=== PATIENT | female | born 1980 | race Caucasian/White ===

== ENCOUNTER 2017-05-25 01:22 | Emergency (ER) ==
[2017-05-25 01:35] VITALS: BP 125/79; TEMP 97.8; BMI 24.5
[2017-05-25] MEDS ORDERED: SODIUM CHLORIDE 1,000 ML IV STA (01:39)
[2017-05-25 02:20] LABS: BASOPHILS # (AUTO) 0.1 K/uL (0-0.2); BASOPHILS % (AUTO) 0.9 % (0.0-3.0); EOSINOPHILS # (AUTO) 0.3 K/ul (0.0-0.7); EOSINOPHILS % (AUTO) 4.5 % (0.0-7.0); HEMOGLOBIN 12.1 g/dl (12.0-16.0); IMMATURE GRANULOCYTE % (AUTO) 0.1 % (0.0-5.0); LYMPHOCYTES # (AUTO) 2.7 K/uL (0.60-3.4); LYMPHOCYTES % (AUTO) 36.4 (10.0-50.0); MEAN CORPUSCULAR HEMOGLOBIN 30.6 pg (27.0-31.0); MEAN CORPUSCULAR HGB CONC 32.7 (31.8-35.4); MEAN CORPUSCULAR VOLUME 93.7 fl (81.0-99.0); MONOCYTES # (AUTO) 0.6 K/uL (0.4-2.0); MONOCYTES % (AUTO) 7.4 (0-10); NEUTROPHILS # (AUTO) 3.8 K/ul (2.0-6.9); NEUTROPHILS % (AUTO) 50.7; PLATELET COUNT 195 10^3/uL (140-440); RED BLOOD COUNT 3.95 10^6/ul (4.20-5.40)
[2017-05-25 02:31] LABS: SERUM PREGNANCY INTERNAL QC INTERNAL QC VALID
[2017-05-25 02:41] LABS: BILIRUBIN,URINE 3+ (NEGATIVE); KETONES,URINE 1+ (NEGATIVE); LEUKOCYTE ESTERASE ,URINE 3+ (NEGATIVE); NITRITE,URINE Positive (NEGATIVE); PH,URINE 8.5 (5-9); PROTEIN,URINE 3+ (NEGATIVE); URINE, BLOOD 3+ (NEGATIVE)
[2017-05-25 02:43] LABS: ADD URINE MICROSCOPIC YES
[2017-05-25 02:47] LABS: ERYTHROCYTE SEDIMENTATION RATE 4 mm/hr (0-20); ESR INTERNAL QC INTERNAL QC VALID
[2017-05-25 03:09] LABS: ALBUMIN 3.7 g/dL (3.4-5.0); ALBUMIN/GLOBULIN RATIO 1.42; ANION GAP 10.8; BILIRUBIN,TOTAL 0.14 mg/dL (0.00-1.20); BUN/CREATININE RATIO 5.55; CALCIUM 8.9 mg/dL (8.2-10.2); CREATININE 0.72 mg/dL (0.60-1.30); POTASSIUM 3.8 mmol/L (3.5-5.10); TOTAL PROTEIN 6.3 g/dL (6.4-8.2)
--- NOTE | 2017-05-25 04:00 | CT ---
Exam: CT of the abdomen and pelvis without and with contrast History: Pelvic pain and swelling Technique: [address] of the abdomen and pelvis without and with intravascular contrast FINDINGS: The lung bases are clear. No significant liver abnormality. The adrenals, pancreas and sple en are unremarkable. The stomach and hiatus are unremarkable.The gallbladder appears normal. Kidneys and proximal collecting system are unremarkable. The appendix is not seen. Normal caliber bowel loops . Moderate tierney colonic stool retention. No inflammation of the mesentery or retroperitoneum. Pelvic genitourinary structures appear normal. Pelvic bowel loops are unremarkable. No inflammatory c hange in the pelvic fat. No acute abnormality of the abdominal or pelvic skeleton. Impression: 1. No inflammatory process, bowel or urinary obstruction is seen.
--- NOTE | 2017-05-25 05:11 | ED.PDOC ---
General ED Provider: Dr. JOSÉ MIGUEL PUGA-ER Chief Complaint: Non-specific Complaint Stated Complaint: it feels like my insides are falling out Time Seen by Physician: 01:30 Mode of Arrival: Walk-In Information Source: Patient Exam Limitations: No limitations Primary Care Provider: CHRISTAL MCGOWAN Nursing and Triage Documentation Reviewed and Agree: Yes Complaint Exam - Complaint/Exam Patient Complains of: Reports: Pain, Dysuria Symptoms Are: Still present Initial Severity: Mild Current Severity: Moderate Location of Pain: Reports: Discrete Aggravating: Reports: None Alleviating: Reports: None Associated Signs and Symptoms: Reports: Abdominal Pain Ovarian Torsion Risk Factors: Reports: Reproductive age Surgical Obstruction Risk Factors: Reports: None RH Status: Unknown Related Surgical History: Reports: None Abdominal Findings: Present: None Adnexal Exam: Present: Normal Findings Rectal Exam: Present: Normal Findings Differential Diagnoses: Ovarian Cyst, PID, Tubo-ovarian Abscess Review of Systems - Review Of Systems Constitutional: Reports: No symptoms Eyes: Reports: No symptoms Ears, Nose, Mouth, Throat: Reports: No symptoms Respiratory: Reports: No symptoms Cardiac: Reports: No symptoms GI: Reports: No symptoms : Reports: Pain Musculoskeletal: Reports: No symptoms Skin: Reports: No symptoms Neurological: Reports: No symptoms Endocrine: Reports: No symptoms Hematologic/Lymphatic: Reports: No symptoms All Other Systems: Reviewed and Negative Past Medical History - Past Medical History Previously Healthy: No Endocrine: Reports: Unknown Cardiovascular: Reports: Unknown Respiratory: Reports: Unknown Hematological: Reports: Unknown Gastrointestinal: Reports: Unknown Genitourinary: Reports: Unknown Neuro/Psych: Reports: Unknown Musculoskeletal: Reports: Unknown Cancer: Reports: Unknown Last Menstrual Period: now - Surgical History General Surgical History: Reports: Unknown - Family History Family History: Reports: Unknown - Social History Smoking Status: Current every day smoker Hx Substance Use: No Alcohol Screening: None - Immunizations Tetanus Shot up to Date: No Physical Exam - Physical Exam Appearance: Well-appearing, No pain distress, Well-nourished Eyes: JOSIANE, EOMI, Conjunctiva clear ENT: Ears normal, Nose normal, Oropharynx normal Neck: Supple Respiratory: Airway patent, Breath sounds clear, Breath sounds equal, Respirations nonlabored Cardiovascular: RRR, Pulses normal, No rub, No murmur GI/: Soft, Nontender, No masses, Bowel sounds normal Musculoskeletal: Normal strength, ROM intact, No edema, No calf tenderness Skin: Warm, Dry, Normal color Neurological: Sensation intact, Motor intact, Reflexes intact, Cranial nerves intact, Alert, Oriented Psychiatric: Affect appropriate, Mood appropriate Interpretation - Radiology Interpretation Radiology Interpretation By: Radiologist Radiology Results: Negative Exam Interpreted: CT Scan Re-Evaluation - Re-Evaluation Time of Re-Evaluation: 05:11 Status: Improved (very sleepy--denies pain) Vital Signs Stable: Yes Pain Level: 0 Appearance: NAD Lungs: Clear Skin: Warm and Dry Neuro: Alert and Oriented X3 CV: RRR Critical Care Note - Critical Care Note Total Time (mins): 0 Course - Course Hematology/Chemistry: 05/25/17 02:04 05/25/17 02:04 Orders, Labs, Meds: Lab Review 05/25/17 05/25/17 05/25/17 02:04 02:04 02:04 WBC 7.40 RBC 3.95 L Hgb 12.1 Hct 37.0 MCV 93.7 MCH 30.6 MCHC 32.7 RDW Coeff of [place] 12.7 Plt Count 195 Immature Gran % (Auto) 0.1 Neut % (Auto) 50.7 Lymph % (Auto) 36.4 [place] % (Auto) 7.4 Eos % (Auto) 4.5 Baso % (Auto) 0.9 Immature Gran # (Auto) 0.0 Neut # 3.8 Lymph # 2.7 [place] # 0.6 Eos # 0.3 Baso # 0.1 ESR 4 Sodium 139 Potassium 3.8 Chloride 101 Carbon Dioxide 31 Anion Gap 10.8 BUN 4 L Creatinine 0.72 Estimated GFR (MDRD) 93.00 BUN/Creatinine Ratio 5.55 Glucose 89 Calcium 8.9 Total Bilirubin 0.14 AST 14 L ALT 12 Alkaline Phosphatase 81 Total Protein 6.3 L Albumin 3.7 Globulin 2.6 Albumin/Globulin Ratio 1.42 Amylase 25 Lipase 22 Serum , Qual Negative Urine Color Urine Clarity Urine pH Ur Specific [place] Urine Protein Urine Glucose (UA) Urine Ketones Urine Blood Urine Nitrite Urine Bilirubin Urine Urobilinogen Ur Leukocyte Esterase Urine Microscopic RBC Urine Microscopic WBC Ur Squamous Epith Cells 05/25/17 02:25 WBC RBC Hgb Hct MCV MCH MCHC RDW Coeff of [place] Plt Count Immature Gran % (Auto) Neut % (Auto) Lymph % (Auto) [place] % (Auto) Eos % (Auto) Baso % (Auto) Immature Gran # (Auto) Neut # Lymph # [place] # Eos # Baso # ESR Sodium Potassium Chloride Carbon Dioxide Anion Gap BUN Creatinine Estimated GFR (MDRD) BUN/Creatinine Ratio Glucose Calcium Total Bilirubin AST ALT Alkaline Phosphatase Total Protein Albumin Globulin Albumin/Globulin Ratio Amylase Lipase Serum , Qual Urine Color Red Urine Clarity Cloudy Urine pH 8.5 Ur Specific [place] <=1.005 Urine Protein 3+ Urine Glucose (UA) Trace Urine Ketones 1+ Urine Blood 3+ Urine Nitrite Positive Urine Bilirubin 3+ Urine Urobilinogen 4.0 Ur Leukocyte Esterase 3+ Urine Microscopic RBC 50-100 Urine Microscopic WBC 0-2 Ur Squamous Epith Cells 0-2 Orders Category Date Time Status NPO REMINDER: IMAGING ONCE CARE 05/25/17 01:40 Completed IV [ED IV/MEDIPORT/POWERPORT] .ONCE EMERGENCY 05/25/17 01:39 Active AMYLASE Stat LAB 05/25/17 02:04 Completed CBC W/ AUTO DIFF Stat LAB 05/25/17 02:04 Completed COMPREHENSIVE METABOLIC PANEL Stat LAB 05/25/17 02:04 Completed ESR Stat LAB 05/25/17 02:04 Completed LIPASE Stat LAB 05/25/17 02:04 Completed SERUM Stat LAB 05/25/17 02:04 Completed URINALYSIS C & S IF INDICATED Stat LAB 05/25/17 02:25 Completed 0.9 % Sodium Chloride [Saline Flush] MEDS 05/25/17 01:39 Ordered 1 syr IVF PRN PRN Sodium Chloride 0.9% [Sodium Chloride] 1,000 ml MEDS 05/25/17 01:39 Active IV 100 mls/hr CT ABDOMEN/PELVIS W/WO CONTRAS Stat RADS 05/25/17 01:39 Completed Medications Generic Name Dose Route Start Last Admin Trade Name Freq PRN Reason Stop Dose Admin Sodium Chloride 1,000 mls @ 100 mls/hr 05/25/17 01:39 05/25/17 02:10 Sodium Chloride IV 05/25/17 11:38 100 mls/hr .Q10H STA Administration Sodium Chloride 1 syr 05/25/17 01:39 05/25/17 02:08 Saline Flush IVF 1 syr PRN PRN Administration To flush IV i offered to perform pelvic exam but declines and stated she would see her regular api product manager thsi am Vital Signs: Temp Pulse Resp BP Pulse Ox 05/25/17 01:24 97.8 F 81 20 125/79 94 L Departure - Departure Time of Disposition: 05:12 Disposition: HOME SELF-CARE Discharge Problem: Pelvic pain UTI (urinary tract infection) Qualifiers: Urinary tract infection type: acute cystitis Hematuria presence: with hematuria Qualified Code(s): N30.01 - Acute cystitis with hematuria Instructions: Pelvic Pain in Women (ED) Condition: Good Pt referred to PMD for follow-up: Yes Additional Instructions: cipro 500mg bid x 7 days---see your api product manager today for pelvic exam Allergies/Adverse Reactions: Allergies acetaminophen [From NyQuil] Adverse Reaction (Verified 05/25/17 01:37) dextromethorphan HBr [From NyQuil] Adverse Reaction (Verified 05/25/17 01:37) doxylamine [From NyQuil] Adverse Reaction (Verified 05/25/17 01:37) pseudoephedrine HCl [From NyQuil] Adverse Reaction (Verified 05/25/17 01:37) Home Medications: Ambulatory Orders Clonazepam [Klonopin] 0.5 mg PO BID 08/12/13 Sertraline HCl [Zoloft] 100 mg PO DAILY 08/12/13 Tramadol HCl [Ultram] 50 mg PO Q6H PRN 05/25/17 Disposition Discussed With: Patient, Family
== END 2017-05-25 05:25 | disposition home or self-care (01) ==
LOC: ED 01:22
DX: N30.01 Acute cystitis with hematuria (principal); R10.2 Pelvic and perineal pain; F17.210 Nicotine dependence, cigarettes, uncomplicated
CPT/HCPCS: 36415; 80053; 81001; 82150; 83690; 84703; 85025; 85651; 96360; 96361; 99283